=== PATIENT | female | born 1985 | race Caucasian/White ===

== ENCOUNTER 2018-02-27 17:34 | Emergency (ER) | payer OTHER ==
[2018-02-27] MEDS ORDERED: MORPHINE 4 MG/ML SYR ONE (18:00)
[2018-02-27] MEDS ORDERED: ONDANSETRON 4 MG/2 ML VIAL ONE ×2 (18:00→19:04)
[2018-02-27] MEDS ORDERED: NA CHLORIDE 0.9% 1,000 ML ONE (18:01)
[2018-02-27 18:05] LABS: Urine Bacteria 20-50 /HPF (<20); Urine Culture Reflex Order REFLEXED; Urine Mucus 2+ /HPF (NONE SEEN)
[2018-02-27 18:05] LABS: Urine Blood 2+ (NEG); Urine Glucose NEGATIVE (NEG); Urine Protein 3+ (NEG)
[2018-02-27 18:13] LABS: Potassium 3.3 mmol/L (3.5-5.1)
[2018-02-27 18:15] LABS: Absolute Lymphocytes (CBC) 3.3 K/uL (0.7-4.9); Absolute Monocytes 0.9 K/uL (0.1-1.3); Absolute Neutrophil 10.3 K/uL (1.8-8.0); Basophils % 0.4 % (0-1.3); Eosinophils % 0.7 % (0-4.4); Lymphocytes % 22.3 % (15.3-44.8); MPV 8.3 fL (7.6-11.3); Monocytes % 6.4 % (3.3-12.3); RBC Red Blood Cell Count 4.95 M/uL (3.86-4.86)
[2018-02-27] MEDS ORDERED: CEFTRIAXONE/SWI 1gm 1 GM/10 ML SYR ONE (18:37)
[2018-02-27] MEDS ORDERED: KETOROLAC 30 MG/ML INJ ONE (18:44)
--- NOTE | 2018-02-27 19:01 | RAD REPORT ---
EXAM DESCRIPTION: CT - Stone Protocol - 02/27/2018 6:17 pm CLINICAL HISTORY: Abdominal pain, right flank pain radiating to the right lower quadrant and groin, history of kidney stones; prior hysterectomy, appendectomy and cholecystectomy COMPARISON: CT study December 2003 T TECHNIQUE: Axial 5 mm thick images were obtained without oral or IV contrast. The [id number] span s the entirety of the system partially obscuring uppermost abdomen and lung bases. All CT scans are performed using dose optimization technique as appropriate and may include automated exposure control or mA/KV adjustment according to patient size. FINDINGS: Mild right-sided hydronephrosis and hydroureter present. No renal, ureteral or bladder batsheva culus present. Dilatation could be due to inflammatory debris, blood or from a recently passed stone. No left-sided hydronephrosis or left-sided calculus. No suspicious renal masses. Isodense masses and pyelonephritis are not excluded on a stone protocol CT scan. Urinary bladder is mostly contracted li miting assessment. No significant adrenal finding. Imaged portions of the liver, spleen and pancreas show no suspicious findings on non-contrast imaging . Cholecystectomy clips are present. No biliary tree dilatation. No suspicious bowel findings. Appendectomy clips are present. No hernia, mass or bulky lymphadenopathy noted. No free air, free fluid or inflammatory stranding. No acute bone finding. IMPRESSION: Mild right-sided hydronephrosis and hydroureter without obstructing calculus. This could be secondary to blood,, inflammatory debris, small mass or sequela of recently passed stone. Isodense masses and pyelonephritis are not excluded on stone protocol technique. Remainder the examination without significant or suspicious finding.
[2018-02-27] MEDS ORDERED: PROMETHAZINE 25 MG/ML VIAL ONE (19:16)
--- NOTE | 2018-02-27 19:45 | EDPHYS ---
Physician Documentation [facility] Name: Ariella Harrison Age: 32 yrs Sex: Female : 1985 Arrival Date: 02/27/2018 Time: 17:43 Bed 16 Private MD: ED Physician Edwin Baires HPI: 02/27 19:06 This 32 yrs old Female presents to ER via EMS with complaints of Flank Pain. kb 19:06 The patient has not experienced similar symptoms in the past. The patient has not kb recently seen a physician. 19:07 The patient complains of pain in the right flank. The pain radiates to the right lower kb quadrant. Onset: The symptoms/episode began/occurred at 17:00. Modifying factors: The symptoms are alleviated by nothing. the symptoms are aggravated by palpation/percussion. Associated signs and symptoms: Pertinent positives: dysuria, nausea, vomiting, Pertinent negatives: diarrhea, dizziness, fever, urinary frequency, headache, hematuria, pain radiating to the lower extremities. Severity of pain: At its worst the pain was moderate in the emergency department the pain is unchanged. 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 - Social history:: Smoking status: Patient uses tobacco products, smokes one-half pack cigarettes per day. - Ebola Screening: : Patient negative for fever greater than or equal to 101.5 degrees Fahrenheit, and additional compatible Ebola Virus Disease symptoms. ROS: 19:07 Constitutional: Negative for fever, chills, and weight loss, ENT: Negative for injury, kb pain, and discharge, Neck: Negative for injury, pain, and swelling, Cardiovascular: Negative for chest pain, palpitations, and edema, Respiratory: Negative for shortness of breath, cough, wheezing, and pleuritic chest pain, Back: Negative for injury and pain, MS/Extremity: Negative for injury and deformity, Skin: Negative for injury, rash, and discoloration, Neuro: Negative for headache, weakness, numbness, tingling, and seizure. 19:07 Abdomen/GI: Positive for abdominal pain, nausea and vomiting, Negative for diarrhea, constipation, abdominal cramps, abdominal distension, anorexia. 19:07 : Positive for urinary symptoms, flank pain, urinary frequency, burning with urination. Exam: 19:07 Head/Face: Normocephalic, atraumatic. ENT: Nares patent. No nasal discharge, no kb septal abnormalities noted. Tympanic membranes are normal and external auditory canals are clear. Oropharynx with no redness, swelling, or masses, exudates, or evidence of obstruction, uvula midline. Mucous membranes moist. Neck: Trachea midline, no thyromegaly or masses palpated, and no cervical lymphadenopathy. Supple, full range of motion without nuchal rigidity, or vertebral point tenderness. No Meningismus. Chest/axilla: Normal chest wall appearance and motion. Nontender with no deformity. No lesions are appreciated. Cardiovascular: Regular rate and rhythm with a normal S1 and S2. No gallops, murmurs, or rubs. Normal PMI, no JVD. No pulse deficits. Respiratory: Lungs have equal breath sounds bilaterally, clear to auscultation and percussion. No rales, rhonchi or wheezes noted. No increased work of breathing, no retractions or nasal flaring. Abdomen/GI: Soft, non-tender, with normal bowel sounds. No distension or tympany. No guarding or rebound. No evidence of tenderness throughout. Skin: Warm, dry with normal turgor. Normal color with no rashes, no lesions, and no evidence of cellulitis. MS/ Extremity: Pulses equal, no cyanosis. Neurovascular intact. Full, normal range of motion. Neuro: Awake and alert, GCS 15, oriented to person, place, time, and situation. Cranial nerves II-XII grossly intact. Motor strength 5/5 in all extremities. Sensory grossly intact. Cerebellar exam normal. Normal gait. 19:07 Constitutional: The patient appears alert, awake, in obvious pain. 19:07 Back: CVA tenderness, that is severe, is noted on the right. Vital Signs: 17:46 BP 98 / 45; Pulse 58; Resp 20; Temp 99.2(O); Pulse Ox 100% on R/A; Weight 85.28 kg (R); rb1 Height 5 ft. 4 in. (162.56 cm) (R); Pain 10/10; 17:56 BP 112 / 63; Pulse 66; Resp 19; Pulse Ox 98% on R/A; dh3 18:00 BP 110 / 72; Pulse 60; Resp 19; Pulse Ox 98% on R/A; dh3 19:58 BP 112 / 68; Pulse 60; Resp 18; Pulse Ox 99% ; ea 17:46 Body Mass Index 32.27 (85.28 kg, 162.56 cm) rb1 MDM: 17:44 Patient medically screened. kb 19:06 Data reviewed: vital signs, nurses notes. Data interpreted: Pulse oximetry: on room air kb is 98 %. Interpretation: normal. Counseling: I had a detailed discussion with the patient and/or guardian regarding: the historical points, exam findings, and any diagnostic results supporting the discharge/admit diagnosis, lab results, radiology results, the need for outpatient follow up, a family practitioner, a urologist, to return to the emergency department if symptoms worsen or persist or if there are any questions or concerns that arise at home. 02/27 17:45 Order name: Basic Metabolic Panel; Complete Time: 18:14 kb 02/27 17:45 Order name: CBC with Diff; Complete Time: 18:22 kb 02/27 17:45 Order name: Urine Microscopic Only; Complete Time: 18:06 kb 02/27 17:45 Order name: CT Stone Protocol; Complete Time: 19:03 kb 02/27 18:01 Order name: Urine Dipstick--Ancillary (enter results); Complete Time: 18:06 ag 02/27 18:06 Order name: Urine Culture EDMS 02/27 17:45 Order name: IV Saline Lock; Complete Time: 17:53 kb 02/27 17:45 Order name: Labs collected and sent; Complete Time: 17:53 kb 02/27 17:45 Order name: Urine Dipstick-Ancillary (obtain specimen); Complete Time: 17:53 kb Administered Medications: 17:55 Drug: morphine 4 mg Route: IVP; Site: left antecubital; rb1 18:20 Follow up: Response: No adverse reaction; Pain is unchanged, physician notified rb1 18:00 Drug: Zofran 4 mg Route: IVP; Site: left antecubital; ss 18:12 Follow up: Response: No adverse reaction; Nausea is decreased rb1 18:02 Drug: NS 0.9% 1000 ml Route: IV; Rate: 1000 ml; Site: left antecubital; ss 20:00 Follow up: Response: No adverse reaction; IV Status: Completed infusion; IV Intake: ea 1000ml 18:28 Drug: Rocephin 1 grams Route: IV; Rate: calculated rate; Site: left antecubital; rb1 19:00 Follow up: Response: No adverse reaction; IV Status: Completed infusion rb1 18:38 Drug: TORadol 30 mg Route: IVP; Site: left antecubital; rb1 19:24 Follow up: Response: No adverse reaction; Pain is decreased ea 19:00 Drug: Zofran 4 mg Route: IVP; Site: left antecubital; rb1 19:05 Follow up: Response: No adverse reaction; Nausea unchanged ea 19:10 Drug: Phenergan 12.5 mg Route: IVP; Site: left antecubital; ea 19:36 Follow up: Response: No adverse reaction; Nausea is decreased ea Disposition: 02/28 07:18 Co-signature as Attending Physician, Edwin Baires MD. rn Disposition: 02/27/18 19:44 Discharged to Home. Impression: Urinary tract infection, site not specified. - Condition is Stable. - Discharge Instructions: Urinary Tract Infection, Adult, [id number]. - Prescriptions for Augmentin 875- 125 mg Oral Tablet - take 1 tablet by ORAL route every 12 hours for 10 days; 20 tablet. Zofran 4 mg Oral Tablet - take 1 tablet by ORAL route every 6 hours As needed; 20 tablet. Tramadol 50 mg Oral Tablet - take 1 tablet by ORAL route every 8 hours as needed; 12 tablet. - Medication Reconciliation Form, Thank You Letter, Antibiotic Education, Prescription Opioid Use form. - Follow up: Emergency Department; When: As needed; Reason: Worsening of condition. Follow up: Private Physician; When: 2 - 3 days; Reason: Recheck today's complaints, Continuance of care, Re-evaluation by your physician. Signatures: Dispatcher [employer] Kay Harper, JULES-C JULES-Edwin Rivas MD MD rn Smirch, Shelby, RN RN ss Barber, Rebecca, RN RN Rosa Arenas RN RN ea Corrections: (The following items were deleted from the chart) 02/27 17:55 17:45 Urine Test ordered. kb rb1 20:54 19:44 02/27/2018 19:44 Discharged to Home. Impression: Urinary tract infection, site ea not specified. Condition is Stable. Forms are Medication Reconciliation Form, Thank You Letter, Antibiotic Education, Prescription Opioid Use. Follow up: Emergency Department; When: As needed; Reason: Worsening of condition. Follow up: Private Physician; When: 2 - 3 days; Reason: Recheck today's complaints, Continuance of care, Re-evaluation by your physician. kb
--- NOTE | 2018-02-27 19:45 | ER ---
Nurse's Notes [facility] Name: Adan Harrison Age: 32 yrs Sex: Female : 1985 Arrival Date: 02/27/2018 Time: 17:43 Bed 16 Private MD: Diagnosis: Urinary tract infection, site not specified Presentation: 02/27 17:34 Presenting complaint: EMS states: 32 yr. old female c/o right flank pain that radiates rb1 to the right lower quadrant and groin. Pain 10/10. Pt. has a history of kidney stone a month ago. BP 145/71, P 90, 97% RA. EMS administered Tylenol 1000mg PO x1. Pt. is allergic to aspirin. Transition of care: patient was not received from another setting of care. Onset of symptoms was February 27, 2018 at 17:00. Risk Assessment: Do you want to hurt yourself or someone else? Patient reports no desire to harm self or others. Initial Sepsis Screen: Does the patient meet any 2 criteria? No. Patient's initial sepsis screen is negative. Does the patient have a suspected source of infection? No. Patient's initial sepsis screen is negative. Care prior to arrival: Medication(s) given: Tylenol, 1000 mg. 17:34 Method Of Arrival: EMS: [place] [id number] 17:34 Acuity: AMY 3 rb1 Triage Assessment: 17:34 General: Appears distressed, uncomfortable, Behavior is crying, Reports fever for 0-12 rb1 hours. Pain: Complains of pain in right flank Pain radiates to right lower quadrant and groin. Neuro: Level of Consciousness is awake, alert, obeys commands, Oriented to person, place, time, situation. Cardiovascular: Capillary refill < 3 seconds is brisk in bilateral fingers. Respiratory: Airway is patent Respiratory effort is even, unlabored, Respiratory pattern is regular, symmetrical. GI: No signs and/or symptoms were reported involving the gastrointestinal system. : Reports pain flank(s), with urination, urinary frequency. Derm: Skin is pink, warm \T\ dry. Musculoskeletal: Range of motion: intact in all extremities. 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 - Social history:: Smoking status: Patient uses tobacco products, smokes one-half pack cigarettes per day. - Ebola Screening: : Patient negative for fever greater than or equal to 101.5 degrees Fahrenheit, and additional compatible Ebola Virus Disease symptoms. Screenin:34 Abuse screen: Denies threats or abuse. Nutritional screening: No deficits noted. rb1 Tuberculosis screening: No symptoms or risk factors identified. Fall Risk None identified. Assessment: 17:34 General: See triage assessment.. rb1 18:15 Reassessment: Pt. went to CT. rb1 18:34 Reassessment: Patient appears in no apparent distress at this time. No changes from rb1 previously documented assessment. 18:55 Reassessment: Pt. is actively vomiting; provider notified. Received or for Zofran 4 mg rb1 IVP x 1. 19:00 General: Appears uncomfortable, Behavior is cooperative. Pain: Denies pain. Neuro: ea Level of Consciousness is Oriented to person, place, time, situation. Cardiovascular: Patient's skin is warm and dry. Respiratory: Airway is patent Respiratory effort is even, unlabored, Respiratory pattern is regular, symmetrical. GI: Reports nausea, vomiting. EENT: No signs and/or symptoms were reported regarding the EENT system. Derm: Skin is pink, warm \T\ dry. 19:58 Reassessment: Patient and/or family updated on plan of care and expected duration. Pain ea level reassessed. Patient is alert, oriented x 3, equal unlabored respirations, skin warm/dry/pink. Discharge instructions given to patient, verbalized the understanding of instruction. Pt awaiting on ride. 20:53 Reassessment: Patient and/or family updated on plan of care and expected duration. Pain ea level reassessed. Patient is alert, oriented x 3, equal unlabored respirations, skin warm/dry/pink. Pt left with significant other. Vital Signs: 17:46 BP 98 / 45; Pulse 58; Resp 20; Temp 99.2(O); Pulse Ox 100% on R/A; Weight 85.28 kg (R); rb1 Height 5 ft. 4 in. (162.56 cm) (R); Pain 10/10; 17:56 BP 112 / 63; Pulse 66; Resp 19; Pulse Ox 98% on R/A; dh3 18:00 BP 110 / 72; Pulse 60; Resp 19; Pulse Ox 98% on R/A; dh3 19:58 BP 112 / 68; Pulse 60; Resp 18; Pulse Ox 99% ; ea 17:46 Body Mass Index 32.27 (85.28 kg, 162.56 cm) rb1 ED Course: 17:34 Arm band placed on right wrist. rb1 17:34 Patient has correct armband on for positive identification. Bed in low position. Call rb1 light in reach. Side rails up X 1. Pulse ox on. NIBP on. 17:40 Urine collected: clean catch specimen, cloudy, adan colored. 3 17:43 Patient arrived in ED. rb1 17:44 Kay Beasley FNP-C is PHCP. kb 17:44 Edwin Baires MD is Attending Physician. kb 17:45 Initial lab(s) drawn, by ga, sent to lab. Inserted saline lock: 22 gauge in left 3 antecubital area, using aseptic technique. Blood collected. 17:46 Triage completed. rb1 18:05 Nery Medina, STEVEN is Primary Nurse. rb1 18:[address] via wheelchair. sj 18:18 CT Stone Protocol In Process Unspecified. EDMS 19:00 Report given to STEVEN Lee. rb1 19:59 No provider procedures requiring assistance completed. IV discontinued, intact, ea bleeding controlled, No redness/swelling at site. Pressure dressing applied. Administered Medications: 17:55 Drug: morphine 4 mg Route: IVP; Site: left antecubital; rb1 18:20 Follow up: Response: No adverse reaction; Pain is unchanged, physician notified rb1 18:00 Drug: Zofran 4 mg Route: IVP; Site: left antecubital; ss 18:12 Follow up: Response: No adverse reaction; Nausea is decreased rb1 18:02 Drug: NS 0.9% 1000 ml Route: IV; Rate: 1000 ml; Site: left antecubital; ss 20:00 Follow up: Response: No adverse reaction; IV Status: Completed infusion; IV Intake: ea 1000ml 18:28 Drug: Rocephin 1 grams Route: IV; Rate: calculated rate; Site: left antecubital; rb1 19:00 Follow up: Response: No adverse reaction; IV Status: Completed infusion rb1 18:38 Drug: TORadol 30 mg Route: IVP; Site: left antecubital; rb1 19:24 Follow up: Response: No adverse reaction; Pain is decreased ea 19:00 Drug: Zofran 4 mg Route: IVP; Site: left antecubital; rb1 19:05 Follow up: Response: No adverse reaction; Nausea unchanged ea 19:10 Drug: Phenergan 12.5 mg Route: IVP; Site: left antecubital; ea 19:36 Follow up: Response: No adverse reaction; Nausea is decreased ea Intake: 20:00 IV: 1000ml; Total: 1000ml. ea Output: 18:55 Gastric: 150ml (Emesis); Total: 150ml. rb1 Outcome: 19:44 Discharge ordered by MD. kb 19:59 Condition: improved ea 19:59 Discharge instructions given to patient, Instructed on discharge instructions, follow up and referral plans. medication usage, Demonstrated understanding of instructions, follow-up care, medications, Prescriptions given X 3. 20:53 Discharged to home ambulatory, with significant other. ea 20:54 Patient left the ED. ea Addendum: 03/03/2018 11:42 Addendum: Culture Results: Positive urine culture. No further action required. Bacteria s s sensitive to prescribed antibiotic. Signatures: Dispatcher [employer] EDMS Kay Beasley, CIGARETTE CATCHER-C CIGARETTE CATCHER-Irma Miller Shelby, RN RN ss Barber, Rebecca RN RN Kenna Barrett formerly [facility], [facility] Rosa Matt RN RN ea Corrections: (The following items were deleted from the chart) 02/27 20:54 20:53 Discharged to home via ambulance, with significant other, ea ea
[2018-02-27 21:09] VITALS: TEMP 99.2
[2018-02-27 21:12] VITALS: BP 112/68; O2SAT 99
== END 2018-02-27 20:54 | disposition home or self-care (01) ==
LOC: ER 17:34
DX: N39.0 Urinary tract infection, site not specified (principal); N13.30 Unspecified hydronephrosis; F17.210 Nicotine dependence, cigarettes, uncomplicated
CPT/HCPCS: 36415; 74176; 76377; 80048; 81003; 81015; 85025; 87077; 87086; 87088; 87186; 96361; 96365; 96375; 99285; J0696; J2405; J2550; J7030